=== PATIENT | female | born 1965 | race Caucasian/White ===

== ENCOUNTER 2024-12-22 09:46 | Day surgery (SDC) | payer OTHER ==
[2024-12-19 12:45] VITALS: BP 117/74
[~2024-12-22] VITALS: Ht 162.6 cm; Wt 64.4 kg
[~2024-12-22 09:46] MED LIST: TOPROL XL25 M1 PO
[2024-12-22] MEDS ORDERED: CHLORHEXIDINE GLUCONATE 120 ML BOTTLE TOP ONE (12:45)
[2024-12-22] MEDS ORDERED: CEFAZOLIN SODIUM 1,000 MG VIAL IV ONE (12:45)
== END 2024-12-22 17:40 | disposition home or self-care (01) ==
LOC: CIR.AMB 09:46
PROVIDERS: ATTEND Surgery
DX: C50.412 Malignant neoplasm of upper-outer quadrant of left female breast (principal); R59.0 Localized enlarged lymph nodes